=== PATIENT | male | born 2000 | race Caucasian/White ===

== ENCOUNTER 2021-02-11 01:57 | Emergency (ER) | payer OTHER ==
[2021-02-11] MEDS ORDERED: AUGMENTIN 875-1 EACH PO ×2 (05:34→05:38)
[2021-02-11] MEDS ORDERED: NORCO 5-325 TA1 EACH PO (05:38)
== END 2021-02-11 06:00 ==
LOC: FER 01:57
DX: S00.11XA Contusion of right eyelid and periocular area, initial encounter (principal); S00.33XA Contusion of nose, initial encounter; F17.200 Nicotine dependence, unspecified, uncomplicated; W22.8XXA Striking against or struck by other objects, initial encounter; Y92.410 Unspecified street and highway as the place of occurrence of the external cause
CPT/HCPCS: 70450; 70486; 72125; 73130